=== PATIENT | female | born 1995 | race Caucasian/White ===

== ENCOUNTER 2016-08-03 21:25 | Emergency (ER) | payer OTHER ==
[~2016-08-03] VITALS: Ht 154.9 cm; Wt 91.7 kg
[~2016-08-03 21:25] MED LIST: ASPIR 8181 M1 PO; BACTRIM,SEPT1 TABLET PO; CIPRO250 MG PO; DESYREL100 MG PO; FIORICET,ESG1 TABLET PO; FLUOXETINE HCL20 MG PO; HEPARIN SO5000 UNITS SC; HYDROXYZINE PAM25 MG PO; KEFLEX500 MG PO; NAPROXEN500 MG PO; NICOTINE PATCH1 EAC2 TD; NOHOMEMEDS; PAROXETINE HCL10 MG PO; PERCOCET 5/31 TABLET PO; PNV PRENATAL P1 EACH PO; PROGESTERONE200 MG VG; PROMETHAZINE HC25 M1 PO; TRAZODONE HCL50 MG PO; VICODIN 5-3001 EACH PO; ZIPRASIDONE HCL20 MG PO; ZOFRAN4 MG PO
[2016-08-03 22:47] LABS: HEMATOCRIT 38.3 % (36.0-46.0); MCH 33.1 PG (29.0-34.0); MCHC 33.9 G/DL (30.0-36.0); MCV 97.5 FL (83-99); MEAN PLAT.VOLUME 11.6 uM^3 (9.5-12.4); PLATELET COUNT 255 K/uL (156-360); RBC DIS.WIDTH-CV 12.8 % (11.8-14.6); RBC DIS.WIDTH-SD 45.5 % (39-53); RED BLOOD COUNT 3.93 M/uL (3.80-5.20); WHITE BLOOD COUNT 11.3 K/uL (4.1-10.2)
[2016-08-03 22:51] LABS: CHLORIDE 105 mEq/L (99-109); SODIUM 137 mEq/L (136-147)
[2016-08-03 22:53] LABS: GLUCOSE 92 mg/dL (70-99)
[2016-08-03 22:54] LABS: ANION GAP 9 MEQ/L (2-14)
[2016-08-03 22:56] LABS: SERUM ETHYL ALCOHOL < 10 mg/dL
[2016-08-03 22:57] LABS: GFR ESTIMATE (CALCULATED) > 59 mL/min/
[2016-08-03 22:58] LABS: UREA NITROGEN (BUN) 11 mg/dL (9-23)
[2016-08-03 23:05] LABS: QUANTITATIVE HCG < 4.0 MIU/ML
[2016-08-03 23:09] LABS: ADD MEDTOX COMMENT Y; AMPHETAMINE NEGATIVE (500 ng/mL); BARBITURATES NEGATIVE (200 ng/mL); BENZODIAZEPINES NEGATIVE (150 ng/mL); COCAINE NEGATIVE (150 ng/mL); INTERNAL CONTROLS VALID? YES; METHADONE NEGATIVE (200 ng/mL); METHAMPHETAMINE NEGATIVE (500 ng/mL); OPIATES (MORPHINE) NEGATIVE (100 ng/mL); OXYCODONE NEGATIVE (100 ng/mL); PHENCYCLIDINE NEGATIVE (25 ng/mL); PROPOXYPHENE NEGATIVE (300 ng/mL); THC CANNABINOIDS PRESUMPTIVE POSITIVE (50 ng/mL); TRICYCLIC ANTIDEPRESSANTS NEGATIVE (300 ng/mL)
[2016-08-03] MEDS ORDERED: ATARAX,VISTARIL50 MG PO (23:57)
[2016-08-04 00:14] VITALS: BP 122/68
== END 2016-08-04 00:17 | disposition home or self-care (01) ==
LOC: EME 21:25
DX: F32.9 Major depressive disorder, single episode, unspecified (principal); F43.10 Post-traumatic stress disorder, unspecified; F17.200 Nicotine dependence, unspecified, uncomplicated
CPT/HCPCS: 80048; 84702; 84999; 85027; 90839; 99281; 99285; G0480; Q0177

== ENCOUNTER 2017-03-19 02:45 | Emergency (ER) | payer OTHER ==
[~2017-03-19] VITALS: Ht 154.9 cm; Wt 78.9 kg
[~2017-03-19 02:45] MED LIST changes: +ATARAX,VISTARIL50 MG PO
[2017-03-19 02:50] VITALS: BP 135/55
== END 2017-03-19 04:55 | disposition home or self-care (01) ==
LOC: EME 02:45
PROC: 0H9BXZZ Drainage of Right Upper Arm Skin, External Approach (ICD-10-PCS; principal; 2017-03-19)
DX: L08.9 Local infection of the skin and subcutaneous tissue, unspecified (principal)
CPT/HCPCS: 87070; 87075; 87076; 87186; 87205; 99281; 99283